=== PATIENT | female | born 1940 | race Two or more races ===

== ENCOUNTER 2017-09-28 09:19 | Outpatient (CLI) | payer OTHER ==
[~2017-09-28 09:19] MED LIST: A/F PAIN RELIE500 MG PO
== END 2017-09-28 09:32 | disposition home or self-care (01) ==
LOC: RAD 501 09:19
DX: M54.2 Cervicalgia (principal); M25.511 Pain in right shoulder

== ENCOUNTER 2019-06-19 20:03 | Inpatient (IN) | payer OTHER ==
[~2019-06-19] VITALS: Ht 154.9 cm; Wt 60.8 kg
[2019-06-19] MEDS ORDERED: LANTUS SOL100 UNIT/1 (21:18)
[2019-06-19] MEDS ORDERED: LASIX20 MG (21:19)
[2019-06-19] MEDS ORDERED: ALDACTONE50 MG (21:20)
== END 2019-06-21 00:42 | disposition expired ==
LOC: ER 20:03 → ICU 06-20 11:21 → ICU-2 06-20 11:21 → ICU 06-20 21:47
PROVIDERS: ADMIT Internal Medicine
PROC: B246ZZZ Ultrasonography of Right and Left Heart (ICD-10-PCS; principal; 2019-06-20)
PROC: 4A033R1 Measurement of Arterial Saturation, Peripheral, Percutaneous Approach (ICD-10-PCS; 2019-06-20)
PROC: 0T9B70Z Drainage of Bladder with Drainage Device, Via Natural or Artificial Opening (ICD-10-PCS; 2019-06-20)
DX: I21.4 Non-ST elevation (NSTEMI) myocardial infarction (principal); I50.43 Acute on chronic combined systolic (congestive) and diastolic (congestive) heart failure; R65.11 Systemic inflammatory response syndrome (SIRS) of non-infectious origin with acute organ dysfunction; I13.0 Hypertensive heart and chronic kidney disease with heart failure and stage 1 through stage 4 chronic kidney disease, or unspecified chronic kidney disease; N18.4 Chronic kidney disease, stage 4 (severe); N17.8 Other acute kidney failure; R57.0 Cardiogenic shock; E03.8 Other specified hypothyroidism; I25.10 Atherosclerotic heart disease of native coronary artery without angina pectoris; G30.0 Alzheimer's disease with early onset; F02.80 Dementia in other diseases classified elsewhere, unspecified severity, without behavioral disturbance, psychotic disturbance, mood disturbance, and anxiety; E11.65 Type 2 diabetes mellitus with hyperglycemia; E11.22 Type 2 diabetes mellitus with diabetic chronic kidney disease; N39.8 Other specified disorders of urinary system; Z79.4 Long term (current) use of insulin; Z66 Do not resuscitate; Z74.01 Bed confinement status